=== PATIENT | male | born 1955 | race Caucasian/White ===

== ENCOUNTER → 2017-10-18 | Outpatient (CLI) | payer OTHER ==
[~2017-10-18] MED LIST: IOPAMIDOL (ISOVUE 370) 100 ML BTL IV ONE
== END ==
LOC: CIMAGING 14:23
PROVIDERS: ATTEND Internal Medicine Cardiovascular Disease
DX: I11.9 Hypertensive heart disease without heart failure (principal); I35.9 Nonrheumatic aortic valve disorder, unspecified; R91.8 Other nonspecific abnormal finding of lung field
CPT/HCPCS: 71275-PO; Q9967

== ENCOUNTER → 2018-01-10 | Outpatient (CLI) | payer OTHER ==
[~2018-01-10] MED LIST changes: -IOPAMIDOL (ISOVUE 370) 100 ML BTL IV ONE; +IOPAMIDOL (ISOVUE-300) 100 ML BTL ONE
== END ==
LOC: FIMAGING 11:01
PROVIDERS: ATTEND Otolaryngology
DX: J34.89 Other specified disorders of nose and nasal sinuses (principal)
CPT/HCPCS: Q9967

== ENCOUNTER 2018-02-21 10:12 | Day surgery (SDC) | payer OTHER ==
[2018-02-21] MEDS ORDERED: NALOXONE HCL 0.4 MG/ML INJ ONE (10:52)
[2018-02-21] MEDS ORDERED: FLUMAZENIL 0.5 MG/5 ML MDV IVP ONE (10:52)
[2018-02-21] MEDS ORDERED: MIDAZOLAM 2 MG/2 ML VIAL ONE (10:53)
[2018-02-21] MEDS ORDERED: fentaNYL 100 MCG/2 ML INJ ONE (10:53)
[2018-02-21] MEDS ORDERED: FLUMAZENIL 0.5 MG/5 ML MDV IVP PRN (10:56)
[2018-02-21] MEDS ORDERED: MIDAZOLAM 2 MG/2 ML VIAL IVP PRN (10:56)
[2018-02-21] MEDS ORDERED: fentaNYL 100 MCG/2 ML INJ IVP PRN (10:56)
[2018-02-21] MEDS ORDERED: ALTEPLASE 2 MG VIAL IVP PRN (10:56)
[2018-02-21] MEDS ORDERED: GLUCAGON HCL 1 MG VIAL IVP PRN (10:56)
[2018-02-21] MEDS ORDERED: NALOXONE HCL 0.4 MG/ML INJ IVP PRN (10:56)
[2018-02-21] MEDS ORDERED: MEPERIDINE 25 MG/ML SYR IVP PRN (10:56)
[2018-02-21] MEDS ORDERED: PROTAMINE SULFATE 50 MG/5 ML VIAL IVP PRN (10:56)
[2018-02-21] MEDS ORDERED: HEPARIN 10,000 UNIT/10 ML MDV (1,000 UNIT/ML) IVP PRN (10:56)
--- NOTE | 2018-02-21 10:59 | PDGENHP ---
History & Physical Chief Complaint: JACKIE NODULE History of Present Illness: JACKIE LUNG NODULE, PET AVID. NO HISTORY OF CA Pertinent Past, Social, Family History: HYPERTENSION, REFLUX ESOPHAGITIS, PVD, HYPERCHOLESTEROLEMIA, SLEEP APNEA, TYPE II DM. Relevant Physical Exam: IN NO DISTRESS Cardiorespiratory Assessment: RRR. CTA
[2018-02-21] MEDS ORDERED: NS 1,000 ML IV SCH (11:00)
--- NOTE | 2018-02-21 11:12 | PDPROPOC ---
Sedation Plan of Care Sedation Plan of Care: vital signs stable, mental status noted, patient educated of risks, benefits, alternatives, patient can tolerate sedation ASA Classification: ASA 2 Planned drugs: fentanyl, midazolam Mallampati Score: Class 3 Mallampati Reference Image: Patient passed 3-3-2 rule?: Yes
--- NOTE | 2018-02-21 14:19 | PDRADPN ---
Radiology Procedure Note Date of Procedure: 02/21/18 Radiologist: Danette Marinelli Anesthesia: IV Sedation Pre-op Diagnosis: JACKIE LUNG NODULE Post-op Diagnosis: SAME Indication: PET AVID, INFECTION VS CANCER Procedure: JACKIE CT GUIDED BIOPSY Finding(s): ADEQUATE TISSUE OBTAINED. SENT FOR BOTH HISTOLOGY AND CULTURES. Inf/Abcess present in the surg proc area at time of surgery?: No Complications: NONE IMMEDIATELY
[2018-02-21 17:08] VITALS: BP 136/78
== END 2018-02-21 17:00 | disposition home or self-care (01) ==
LOC: FIMAGING 10:12
PROVIDERS: ATTEND Family Medicine
PROC: 0BBG3ZX Excision of Left Upper Lung Lobe, Percutaneous Approach, Diagnostic (ICD-10-PCS; principal; 2018-02-21 14:31)
DX: C34.12 Malignant neoplasm of upper lobe, left bronchus or lung (principal); I10 Essential (primary) hypertension; K21.0 Gastro-esophageal reflux disease with esophagitis; I73.9 Peripheral vascular disease, unspecified; E78.00 Pure hypercholesterolemia, unspecified; G47.30 Sleep apnea, unspecified; E11.9 Type 2 diabetes mellitus without complications; Z72.0 Tobacco use
CPT/HCPCS: J2250; J2310; J3010

== ENCOUNTER → 2018-03-04 | Outpatient (CLI) | payer OTHER | LOC: FIMAGING 11:06 | PROVIDERS: ATTEND Internal Medicine Hematology & Oncology | DX: Z12.89 Encounter for screening for malignant neoplasm of other sites (principal); C34.12 Malignant neoplasm of upper lobe, left bronchus or lung ==